=== PATIENT | male | born 1995 | race Caucasian/White ===

== ENCOUNTER 2020-10-25 19:57 | Emergency (ER) | payer OTHER ==
[~2020-10-25] VITALS: Ht 185.4 cm; Wt 94.8 kg
[2020-10-25] MEDS ORDERED: AUGM875T28 PO (21:31)
[2020-10-25] MEDS ORDERED: AUGMENTIN 875 MG TAB PO ONE (21:35)
[2020-10-25 21:50] VITALS: BP 151/89
== END 2020-10-25 21:52 | disposition home or self-care (01) ==
LOC: M ED 19:57
DX: S51.801A Unspecified open wound of right forearm, initial encounter (principal); W54.0XXA Bitten by dog, initial encounter; Y92.099 Unspecified place in other non-institutional residence as the place of occurrence of the external cause; Y93.9 Activity, unspecified; Y99.9 Unspecified external cause status